=== PATIENT | female | born 1940 | race Caucasian/White ===

== ENCOUNTER 2017-10-02 14:36 | Inpatient (IN) ==
[~2017-10-02 14:36] MED LIST: CYANOCOBALAMIN (B-12) 1,000mcg/ml INJECTION IM SCH
--- NOTE | 2017-10-02 15:05 | Emergency Department Report ---
General Adult HPI - General Chief complaint: Psychiatric Symptoms Stated complaint: withdrawals from medication Time Seen by Provider: 10/02/17 15:05 Source: patient Mode of arrival: ambulatory Limitations: no limitations - History of Present Illness HPI narrative: Patient is a 77-year-old female presents emergency room for evaluation of withdrawal from medication. Patient states she has been taking amitriptyline for 40 years and alprazolam for 25 years, patient was stopped on these medications on May. For the past 3-4 days patient's been having increasing night terrors waking up screaming, feels that she needs a vitamin B-12 shot daily for the next week because, "these the only thing that helps me". Patient did see her primary medical physician on Monday he refused to give her daily vitamin B-12 shot. Patient today decided present to the ER because she has been waking up screaming at night through the entire weekend. Patient did go to urgent care who told her also she zonation's so patient was sent to the ER for evaluation. Discuss case with Dr. Levy primary medical physician, he did see the patient on Monday and at that point felt she was manic and was under diagnosed bipolar. He would feel the [facility] might be appropriate fit for her. She was not evaluated psychiatrically in his office, did have an appointment that she did not make. Onset (ago): unknown - Related Data Home Medications Medication Instructions Recorded Confirmed Carvedilol 12.5 mg PO BID #0 10/31/11 10/02/17 Cyanocobalamin (B-12) [Vit. B-12] 1 unit IM WEEKLY #13 03/11/16 10/02/17 Levothyroxine Sodium 137 mcg PO DAILY #90 03/11/16 10/02/17 Allergies Allergy/AdvReac Type Severity Reaction Status Date / Time Sulfa (Sulfonamide Allergy Unknown Verified 10/02/17 14:57 Antibiotics) codeine AdvReac Mild NAUSEA Verified 10/02/17 14:57 Review of Systems Constitutional: Denies: fever, chills ENT: Denies: ear pain, throat pain, dental pain Cardiovascular: Denies: chest pain, palpitations Respiratory: Denies: cough, dyspnea, wheezes Gastrointestinal: Denies: abdominal pain, nausea, vomiting Genitourinary: Denies: dysuria, frequency Musculoskeletal: Denies: back pain, joint swelling Neurological: Denies: headache, weakness Psychiatric: Denies: anxiety, depression Endocrine: Denies: fatigue, heat or cold intolerance [facility] Patient Stated Medical History Hearing Loss Yes Other HEENT Yes: Wears glasses Hypertension Yes Other GI Yes: Gallstones Depression Yes - Social History Smoking status: Never smoker Substance use type: does not use Alcohol intake frequency: does not drink Physical Exam - General General appearance: alert, in no apparent distress - Eye Eye exam: Present: PERRL, EOMI - ENT ENT exam: Present: normal oropharynx, mucous membranes moist, mucous membranes dry - Neck Neck exam: Present: normal inspection, full ROM, trachea midline. Absent: tenderness - Chest Chest inspection: Present: normal inspection, symmetric chest wall rise. Absent : tenderness - Respiratory Respiratory exam: Present: normal lung sounds bilaterally. Absent: respiratory distress, wheezes, stridor - Cardiovascular Cardiovascular exam: Present: regular rate, normal rhythm, normal heart sounds - Abdominal Exam Abdominal exam: Present: soft, normal bowel sounds. Absent: distention, tenderness - Back Exam Back exam: Present: full ROM. Absent: tenderness - Skin Skin exam: Present: warm, dry - Neurological Exam Neurological exam: Present: alert, oriented X3 - Psychiatric Psychiatric exam: Present: normal affect, normal mood Course Vital Signs Temperature 99.0 F 10/02/17 14:40 Pulse Rate 105 H 10/02/17 14:40 Respiratory Rate 20 10/02/17 14:40 Blood Pressure 140/71 H 10/02/17 14:40 Pulse Oximetry 93 10/02/17 14:40 Temperature 99.0 F 10/02/17 14:40 Pulse Rate 89 10/02/17 16:16 Respiratory Rate 20 10/02/17 16:16 Blood Pressure 137/71 10/02/17 16:16 Pulse Oximetry 98 10/02/17 16:16 Medical Decision Making - Lab Data Lab results reviewed: Yes: I reviewed the patient's lab results. Result diagrams: 10/02/17 15:30 10/02/17 15:30 Lab Results 10/02/17 10/02/17 10/02/17 Range/Units 15:21 15:30 15:30 WBC 4.2 L (4.5-11.0) T/MM3 RBC 4.34 (4.00-5.20) M/MM3 Hgb 12.5 (12-16) GM/DL Hct 39.6 (36-46) % MCV 91.2 (80-100) UM3 MCH 28.8 (26-34) UUG MCHC 31.6 (31-37) GM/DL RDW Std Deviation 46.1 (36.9-50.2) FL Plt Count 156 (130-400) T/MM3 MPV 10.7 (9.4-12.4) UM3 Immature Gran % (Auto) 0.5 (0.0-0.5) % Neut % (Auto) 62.8 (33-66) % Lymph % (Auto) 22.9 L (23-45) % [place] % (Auto) 13.1 H (0-9.0) % Eos % (Auto) 0.5 (0-4) % Baso % (Auto) 0.2 (0-2) % Neut # (Auto) 2.6 (1.8-7.7) T/MM3 Lymph # (Auto) 1.0 (1-4.8) T/MM3 [place] # (Auto) 0.6 (0-0.8) T/MM3 Eos # (Auto) 0.0 (0-0.5) T/MM3 Baso # (Auto) 0.0 (0-0.2) T/MM3 Abs Immat Gran (auto) 0.02 (0.00-0.03) T/MM3 Turbidity < 20 (0-20) Sodium 137 (134-144) MEQ/L Potassium 3.8 (3.6-5) MEQ/L Chloride 101 (98-107) MEQ/L Carbon Dioxide 27 (22-30) MEQ/L Anion Gap 9 (5-15) MEQ/L BUN 13.0 (7-17) MG/DL Creatinine 0.6 L (0.7-1.2) MG/DL GFR Calculation 97 BUN/Creatinine Ratio 22 (6-26) RATIO Glucose 125 H (65-110) MG/DL Calculated Osmolality 265 (261-280) MOSM/KG Calcium 8.5 (8.4-10.2) MG/DL Total Bilirubin 0.40 (0.20-1.30) MG/DL Icterus Index < 2 (0-7) AST 61 H (14-36) U/L ALT 76 H (9-52) U/L Alkaline Phosphatase 84 (38-126) U/L Troponin I < 0.012 (0-0.12) ng/ml Total Protein 6.7 (6.3-8.2) G/DL Albumin 3.7 (3.5-5.0) G/DL Globulin 3.0 (2.4-3.6) G/DL Albumin/Globulin Ratio 1.2 (1.1-2.2) RATIO Specimen Hemolysis < 15 (0-25) Ur Collection Type Urine, clean catch Urine Color Yellow (YELLOW) Urine Clarity Sl cloudy Urine pH 5.5 (5.0-8.0) Ur Specific [place] >=1.030 H (1.015-1.025) Urine Protein 2+ A (NEGATIVE) Urine Glucose (UA) Negative (NEGATIVE) Urine Ketones Trace A (NEGATIVE) Urine Occult Blood 2+ A (NEGATIVE) Urine Nitrate Negative (NEGATIVE) Urine Bilirubin Negative (NEGATIVE) Urine Urobilinogen 0.2 (NORMAL) EU/DL Ur Leukocyte Esterase Negative (NEGATIVE) Urine RBC 0-1 (0-3) /HPF Urine WBC 1-3 (0-5) /HPF Ur Squamous Epith Cells 0-5 Urine Bacteria 3+ H (NEGATIVE) Urine Mucus Present Ur Culture Indicated? Cult not indicated - Radiology Data Radiology results reviewed: Yes: I reviewed the patient's radiology results. No acute cardiopulmonary findings - EKG Data EKG #1 EKG attestation: Yes: I reviewed and interpreted this EKG. EKG shows normal: sinus rhythm, axis, intervals, QRS complexes, ST-T waves Disposition Clinical Impression: Bipolar disorder Qualifiers: Active/Remission status: currently active Current bipolar episode type: manic Current episode severity: moderate Qualified Code(s): F31.12 - Bipolar disorder , current episode manic without psychotic features, moderate [place] 66 [place] [facility] [place] [facility] Condition: Stable Prescriptions: No Action Carvedilol 12.5 mg PO BID #0 Levothyroxine Sodium 137 mcg PO DAILY #90 Cyanocobalamin (B-12) [Vit. B-12] 1 unit IM WEEKLY #13 Referrals: Alvarado Levy MD [Family Provider] - Time of Disposition: 18:11 - Seen By: physician
--- NOTE | 2017-10-02 16:18 | XRay Report ---
EXAM: XR chest 1V HISTORY: weakness, [facility] eval COMPARISON: Prior examination dated 06/19/2015 . FINDINGS: The lung quintanilla are hypoventilated. There are linear densities at the lung bases likely reflecting linear subsegmental atelectasis. No acute focal infiltrates are identified. The cardiomediastinal silhouette is normal. The mediastinum is not widened. The trachea is midline. The pulmonary vascularity is not engorged. The bony thorax shows degenerative/senescent changes. There are again noted postsurgical changes in the right axilla. IMPRESSION: 1. The lung quintanilla are hypoventilated with linear subsegmental atelectasis at the lung bases. 2. No acute focal infiltrates are identified. .
[2017-10-02] MEDS ORDERED: HALOPERIDOL 5 MG/ML INJECTION IM PRN (18:34)
[2017-10-02] MEDS ORDERED: LORazepam 0.5 MG TABLET PO PRN (18:34)
[2017-10-02] MEDS ORDERED: HALOPERIDOL 0.5 MG TABLET PO PRN (18:34)
[2017-10-02] MEDS ORDERED: IBUPROFEN 600 MG TABLET PO PRN (20:37)
[2017-10-02] MEDS ORDERED: CARVEDILOL 12.5 MG TABLET PO SCH (21:00)
[2017-10-02 21:41] VITALS: PULSE 74
[2017-10-03 01:41] VITALS: BMI 29.5
[2017-10-03] MEDS ORDERED: LEVOTHYROXINE 137 MCG TABLET PO SCH ×2 (06:30→09:00)
[2017-10-03 07:59] VITALS: BP 124/68; RESP 16; TEMP 98.5; O2SAT 94
[2017-10-03] MEDS ORDERED: CARVEDILOL 12.5 MG TABLET PO SCH (08:00)
--- NOTE | 2017-10-03 10:12 | History & Physical Report ---
History of Present Illness Date: 10/03/17 Chief complaint: night terrors HPI: Hansa is a 77-year-old patient of Dr. Levy. She presented to the emergency room for 3-4 day history of increasing night terrors. She is convinced that she needs daily vitamin B12 shots for her symptoms and Dr. Levy would not give them to her. She refers back to time in 1986 where she was hospitalized at [place] for similar symptoms and states that B12 shots treated the problem. She had been seen in the office by Dr. Levy last week and at that point, he felt she was manic and was undiagnosed bipolar. She was weaned off of her amitriptyline and alprazolam in May. Since that time, she has had trouble sleeping per her report. Review of Systems All systems PM: 10-point ROS was reviewed, no additional remarkable complaints except - Constitutional Constitutional: Present: fever(s) (ran a fever overnight) - Gastrointestinal Gastrointestinal: Present: diarrhea (states she has diarrhea when she is nervous or stressed) - Psychiatric Psychiatric Comments: Insomnia PFSH Medical History Hypertension Hyperlipidemia Type 2 diabetes Overactive bladder/urinary incontinence TMJ syndrome Anxiety disorder/depression Vitamin B12 deficiency Seasonal allergies Hearing loss History of breast cancer Hypothyroidism Migraines Surgical History: Colonoscopy 04/26/17 negative except for hyperplastic polyps, EGD and dilation of esophageal stricture 03/14/16, lumpectomy left breast 2012, right breast 1991, hysterectomy 1981, appendectomy, cholecystectomy, tonsillectomy, section Family History: Father-hypertension, heart disease, hyperlipidemia, depression, colon cancer, hard of hearing Mother-hypertension, heart disease, hyperlipidemia, breast cancer, heart appearing, allergies Brother-hypertension, allergies - Social History Smoking status: Never smoker Substance use type: does not use Alcohol intake frequency: does not drink Housing: house (lives with her children) Current occupational status: retired Social history: PCP-Dr. Alvarado Levy Medications Home Medications Medication Instructions Recorded Confirmed Type Carvedilol 12.5 mg PO BID #0 10/31/11 10/03/17 History Cyanocobalamin (B-12) [Vit. B-12] 1 unit IM WEEKLY #13 03/11/16 10/03/17 History Levothyroxine Sodium 137 mcg PO DAILY #90 03/11/16 10/03/17 History Ibuprofen [Motrin] 1 tab PO Q6H 10/03/17 10/03/17 History Allergies Allergy/AdvReac Type Severity Reaction Status Date / Time Sulfa (Sulfonamide Allergy Unknown Verified 10/03/17 14:41 Antibiotics) codeine AdvReac Mild NAUSEA Verified 10/03/17 14:41 Exam Vital Signs: Temperature 98.5 F 10/03/17 07:59 Pulse Rate 74 10/03/17 07:59 Respiratory Rate 16 10/03/17 07:59 Blood Pressure 124/68 10/03/17 07:59 Pulse Oximetry 94 10/03/17 07:59 Height/Weight/BMI: Height 1.63 m Weight 78.2 kg Body Mass Index 29.5 - Constitutional Present: no acute distress, well nourished, well developed, cooperative - Routine HEENT Exam Eye: Present: EOMI. Absent: conjunctival icterus - Routine Neck Exam Present: supple. Absent: lymphadenopathy, thyromegaly - Routine Respiratory Exam Present: CTA bilaterally. Absent: wheezes - Routine Cardiovascular Exam Present: RRR. Absent: murmur - Routine Abdominal Exam Present: soft, normoactive bowel sounds, non distended. Absent: tenderness - Routine Extremities Exam Present: no edema, normal capillary refill - Routine Skin Exam Present: dry, warm - Routine Neurological Exam Present: alert, oriented X3, moving all extremities, normal tone, vision grossly intact, hearing grossly intact. Absent: pronator drift, altered mental status, facial asymmetry Cranial nerves III through XII intact - Routine Psychiatric Exam Present: normal affect, cooperative, manic Results - Labs CBC & Chem 7: 10/02/17 15:30 10/02/17 15:30 - Imaging and Cardiology Chest x-ray Additional comments: Date of Exam: 10/02/17 EXAM: XR chest 1V HISTORY: weakness, [facility] eval FINDINGS: The lung quintanilla are hypoventilated. There are linear densities at the lung bases likely reflecting linear subsegmental atelectasis. No acute focal infiltrates are identified. The cardiomediastinal silhouette is normal. The mediastinum is not widened. The trachea is midline. The pulmonary vascularity is not engorged. The bony thorax shows degenerative/senescent changes. There are again noted postsurgical changes in the right axilla. IMPRESSION: 1. The lung quintanilla are hypoventilated with linear subsegmental atelectasis at the lung bases. 2. No acute focal infiltrates are identified. Assessment and Plan (1) Bipolar disorder Status: Acute Assessment and Plan: Impression Manic symptoms- suspect bipolar disorder Night terrors Hypertension Hyperlipidemia Type 2 diabetes Overactive bladder/urinary incontinence TMJ syndrome Anxiety disorder/depression Vitamin B12 deficiency Seasonal allergies Hearing loss History of breast cancer Hypothyroidism Migraines Mnire's per patient report Plan Agree with admission to [facility] for psychiatric evaluation and treatment and to provide a safe environment. Patient is requesting meclizine for dizziness. She reports a history of Mnire' s. Nursing staff had indicated to me earlier that patient was weaned off the meclizine along with her amitriptyline and alprazolam. I have a call into Dr. Levy's office regarding this. Overall patient appears medically stable, however, she did run a fever overnight of up to 101.5, but she is afebrile this morning. Respiratory panel is pending. She has had some diarrhea so stool culture will be ordered. Check TSH as well. B12 level is pending. Dr. Bright currently has B12 ordered IM daily. Currently do not have an A1c results. Will schedule Accu-Cheks. If they are stable and A1c is reasonable, can discontinue order. We will continue to follow the patient medically throughout her stay. Thank you for the consult. Care to return to Dr. Levy upon dismissal. - Physician Narriative Physician: Isabel Gallegos MD Narriative: 10/03/17 20:49 I have independently evaluated and examined this patient. I reviewed the chart, the patient's history, and the [facility]PA's documented findings as above. We discussed and formulated the assessment and plan as above with additions as below: Mrs. Mina continues to describe having been abruptly weaned off of alprazolam and amitriptyline; she did not focus on B 12 at the time of my assessment. She additionally reported needing calcium with vitamin D to avoid leg cramps she is experiencing but denied generalized myalgias or arthralgias. She reports increased cough recently and that she's felt hot and cold for the last couple of weeks which she attributes to going "cold turkey" for medications. She last had a flu shot about 40 years ago. Push of speech is present and she is often tangential but she is pleasant and generally cooperative with examination Cranial nerves III through XII intact, motor tone normal, no tremors. Breakaway weakness on testing of motor groups, no drift of the upper extremities. Sensation intact to light touch 4 extremities Respirations nonlabored with good airflow, breath sounds clear, no wheezing Regular cardiac exam Chest x-ray reviewed by myself and is unremarkable. Influenza A positive Mildly neutropenic; transaminases slightly elevated, urine concentrated Respiratory isolation needed-anticipate transfer to medicine. Transfer plan subsequently discussed/confirmed with Dr. Bright. Hospital Course Summary Disclaimer: The visit summary below is not to be considered part of the above Progress Note. Hospital Course: Impression Manic symptoms- suspect bipolar disorder Night terrors Hypertension Hyperlipidemia Type 2 diabetes Overactive bladder/urinary incontinence TMJ syndrome Anxiety disorder/depression Vitamin B12 deficiency Seasonal allergies Hearing loss History of breast cancer Hypothyroidism Migraines Mnire's per patient report 10/03/17 Agree with admission to [facility] for psychiatric evaluation and treatment and to provide a safe environment. Patient is requesting meclizine for dizziness. She reports a history of Mnire' s. Nursing staff had indicated to me earlier that patient was weaned off the meclizine along with her amitriptyline and alprazolam. I have a call into Dr. Levy's office regarding this. Overall patient appears medically stable, however, she did run a fever overnight of up to 101.5, but she is afebrile this morning. Respiratory panel is pending. She has had some diarrhea so stool culture will be ordered. Check TSH as well. B12 level is pending. Dr. Bright currently has B12 ordered IM daily. Currently do not have an A1c results. Will schedule Accu-Cheks. If they are stable and A1c is reasonable, can discontinue order. We will continue to follow the patient medically throughout her stay. Thank you for the consult. Care to return to Dr. Levy upon dismissal. Addendum entered and electronically signed by CHARLY Ruvalcaba 10/03/17 12:03 : Spoke with Dr. Levy regarding patient. He states she weaned herself off of the amitriptyline and alprazolam. Meclizine may be used, however do not recommend long-term use. Addendum entered and electronically signed by CHARLY Ruvalcaba 10/03/17 12:25 : Patient tested positive for influenza A. GI panel canceled as etiology for fever was found. Addendum entered and electronically signed by CHARLY Ruvalcaba 10/03/17 15:54 : Correction to above note: Patient does not have B12 IM ordered daily, it is ordered weekly as she has been receiving. Dr. Levy was unable to find previous vitamin B12 results. Vitamin B12 drawn at this visit is pending.
[2017-10-03] MEDS ORDERED: MECLIZINE 25 MG TABLET PO PRN (11:12)
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
== END 2017-10-03 14:50 | disposition short-term general hospital (02) | DRG 153 ==
LOC: ED 14:36 → GEN 18:34
PROVIDERS: ADMIT Psychiatry & Neurology Psychiatry; ATTEND Psychiatry & Neurology Psychiatry

== ENCOUNTER 2017-10-03 13:55 | Observation (INO) ==
--- NOTE | 2017-10-03 14:57 | Progress Note ---
Progress Note: Patient was seen for consultation on the [facility] today. She had a fever overnight and tested positive for influenza A. She cannot stay in the [facility] given that she will need droplet precautions. She was transferred to the medical floor for observation and treatment and droplet precautions. See [facility] consult note for further information. Formal H&P to be performed tomorrow for her medical admission. Addendum entered and electronically signed by CHARLY Ruvalcaba 10/03/17 15:54 : Patient started on Tamiflu
[2017-10-03] MEDS ORDERED: HALOPERIDOL 5 MG/ML INJECTION IVP PRN (15:48)
[2017-10-03] MEDS ORDERED: LORazepam 0.5 MG TABLET PO PRN (15:49)
[2017-10-03] MEDS ORDERED: HALOPERIDOL 0.5 MG TABLET PO PRN (15:49)
[2017-10-03 15:51] VITALS: BMI 30.7
[2017-10-03] MEDS ORDERED: ONDANSETRON 4 MG/2 ML INJECTION IVP PRN (15:53)
[2017-10-03] MEDS ORDERED: ALBUTEROL/IPRATROPIUM 2.5mg-0.5mg/3ml NEB AEROSOL PRN (16:12)
[2017-10-03] MEDS: CARVEDILOL 12.5 MG TABLET PO SCH (17:46)
[2017-10-03] MEDS: ALBUTEROL/IPRATROPIUM 2.5mg-0.5mg/3ml NEB AEROSOL SCH (19:24)
[2017-10-03] MEDS ORDERED: CALCIUM 500 + VIT D 200 TABLET PO PRN (20:55)
[2017-10-04] MEDS: LEVOTHYROXINE 137 MCG TABLET PO SCH (06:22)
[2017-10-04] MEDS: MECLIZINE 25 MG TABLET PO PRN (06:22)
[2017-10-04] MEDS: BENZONATATE 200 MG CAPSULE PO PRN ×2 (09:00→17:54)
[2017-10-04] MEDS: CARVEDILOL 12.5 MG TABLET PO SCH ×2 (09:00→17:49)
[2017-10-04] MEDS: MENTHOL COUGH DROPS (RICOLA) MM PRN ×2 (09:01→17:54)
[2017-10-04] MEDS: ALBUTEROL/IPRATROPIUM 2.5mg-0.5mg/3ml NEB AEROSOL SCH ×3 (09:16→19:33)
--- NOTE | 2017-10-04 12:28 | History & Physical Report ---
History of Present Illness Date: 10/04/17 Chief complaint: influenza A HPI: Hansa is a 77-year-old female who was [facility] unit yesterday due to positive influenza. She had run a fever overnight the night before last, thus respiratory panel was ordered and was positive. As the [facility] cannot keep patients with droplet precautions in the unit, she was transferred. Overall, her main complaint is cough and some pain in the chest related to the cough. She's not had a fever since the first night. She has been started on Tamiflu and breathing treatments and believes the breathing treatments are very helpful. She was originally admitted to the [facility] because she was having increasing night terrors. She was convinced she needed daily vitamin B12 shots for her symptoms. She weaned off of amitriptyline and alprazolam reportedly in May. Has had trouble sleeping since that time per her report. Review of Systems All systems PM: 10-point ROS was reviewed, no additional remarkable complaints except Review of systems: Cough, feeling like her "head is in a well," poor sleep last night, mild diarrhea (states she gets this if she is stressed/nervous), mild chest discomfort related to cough PFSH Medical History Hypertension Hyperlipidemia Type 2 diabetes Overactive bladder/urinary incontinence TMJ syndrome Anxiety disorder/depression Vitamin B12 deficiency Seasonal allergies Hearing loss History of breast cancer Hypothyroidism Migraines Surgical History: Colonoscopy 04/26/17 negative except for hyperplastic polyps, EGD and dilation of esophageal stricture 03/14/16, lumpectomy left breast 2012, right breast 1991, hysterectomy 1981, appendectomy, cholecystectomy, tonsillectomy, section Family History: Father-hypertension, heart disease, hyperlipidemia, depression, colon cancer, hard of hearing Mother-hypertension, heart disease, hyperlipidemia, breast cancer, heart appearing, allergies Brother-hypertension, allergies - Social History Smoking status: Never smoker Substance use type: does not use Alcohol intake frequency: does not drink Housing: house (her son lives in the basement) Current occupational status: retired Current residence: Apartment/Private Home Social history: PCP-Dr. Alvarado Levy Medications Home Medications Medication Instructions Recorded Confirmed Type Carvedilol 12.5 mg PO BID #0 10/31/11 10/03/17 History Cyanocobalamin (B-12) [Vit. B-12] 1 unit IM WEEKLY #13 03/11/16 10/03/17 History Levothyroxine Sodium 137 mcg PO DAILY #90 03/11/16 10/03/17 History Ibuprofen [Motrin] 1 tab PO Q6H 10/03/17 10/03/17 History Allergies Allergy/AdvReac Type Severity Reaction Status Date / Time Sulfa (Sulfonamide Allergy Unknown Verified 10/03/17 14:41 Antibiotics) codeine AdvReac Mild NAUSEA Verified 10/03/17 14:41 Exam Vital Signs: Temperature 97.7 F 10/04/17 08:49 Pulse Rate 90 10/04/17 08:49 Respiratory Rate 24 10/04/17 09:16 Blood Pressure 145/71 H 10/04/17 08:49 Pulse Oximetry 99 10/04/17 09:16 Height/Weight/BMI: Height 1.6 m Weight 79.2 kg Body Mass Index 30.7 - Constitutional Present: no acute distress, well nourished, well developed - Routine HEENT Exam Eye: Present: EOMI. Absent: conjunctival icterus - Routine Neck Exam Present: supple. Absent: lymphadenopathy, thyromegaly - Routine Respiratory Exam Present: CTA bilaterally. Absent: wheezes - Routine Cardiovascular Exam Present: RRR. Absent: murmur - Routine Abdominal Exam Present: soft, normoactive bowel sounds, non distended. Absent: tenderness - Routine Extremities Exam Present: no edema, normal capillary refill - Routine Skin Exam Present: dry, warm - Routine Neurological Exam Present: alert, oriented X3, moving all extremities, normal tone, normal speech. Absent: pronator drift Cranial 3 through 12 intact - Routine Psychiatric Exam Present: normal affect, cooperative Results - Labs CBC & Chem 7: 10/04/17 04:25 10/04/17 04:25 Labs: Positive influenza A Laboratory Tests 10/02/17 15:23 Hemoglobin A1c 8.0 H Laboratory Tests 10/02/17 10/03/17 15:20 13:41 Vitamin B12 > 1000 H Folate > 20.0 H TSH 4.09 Assessment and Plan (1) Influenza A Current visit: No Status: Acute Assessment and Plan: Impression Influenza A Manic symptoms- suspect bipolar disorder Night terrors Hypertension Hyperlipidemia Type 2 diabetes (A1C 8.0 this admission) Overactive bladder/urinary incontinence TMJ syndrome Anxiety disorder/depression Vitamin B12 deficiency Seasonal allergies Hearing loss History of breast cancer Hypothyroidism Migraines Mnire's per patient report Plan Admit to hospitalist service (Dr. Gallegos attending) observation status for treatment of her influenza A and droplet precautions. Patient started on Tamiflu and Duoneb txs. B12 level is >1000. Despite her requests, she will not need daily B12 injections. SCD's for VTE prophylaxis. This should likely suffice as she should be up and walking periodically. Consult PT/OT to assess functional status. Accu-Cheks and sliding scale insulin. She is not currently on any diabetic medications. Will follow her sugars while here. She may benefit from metformin , but will not start presently since she is having diarrhea. Dr Bright plans to start depakote for her kaylen. She requests to be a full code. Care to return to Dr. Levy upon dismissal. DVT Prophylaxis: SCD's Resuscitation Status: Full Code - Physician Narriative Physician: Isabel Gallegos MD Narriative: 10/04/17 15:36 I have independently evaluated and examined this patient. I reviewed the chart, the patient's history, and the [employer]/PA's documented findings as above. We discussed and formulated the assessment and plan as above with additions as below: Mrs. Mina is known from her brief stay in [facility]. She recently tapered off of alprazolam and amitriptyline and in doing so developed increasing nightmares--> night terrors. On follow-up in the office manic behavior was described prompting hospitalization in geriatric psychiatry. The patient has had a cough and fever was identified the initial night of hospitalization at which time respiratory viral swab was positive for influenza A. The patient is difficult to obtain concrete historical information from as she initially perseverated on need for B-12 shots daily. Today she reports that her cough is better this morning but that she didn't sleep well due to coughing spells. She has increased rhinorrhea today on exam although she doesn't comment on it. Primary complaint today is of generalized weakness and fatigue. NAD, hard of hearing-hearing aid batteries . Respirations nonlabored with diminished air flow but breath sounds are clear Regular rhythm, S1-S2 No tremors, MAEW Chest x-ray of 10/02/17 reviewed by myself-NAD. Liver enzymes on admission 1211 with mild elevation transaminases, TSH 4.09 yesterday. Case discussed with Dr. Bright twice today. Patient is now declining any treatment for bipolar affective disorder. Dr. Bright as recommended Depakote ER at a dose of [id number] mg at bedtime if liver enzymes are improved. LFTs being repeated on blood and lab. LFTs normal in April per outpatient records. Continue Tamiflu. Patient gave me permission to discuss lab results with her brother and he was updated on influenza and B-12 level. Hospital Course Summary Disclaimer: The visit summary below is not to be considered part of the above Progress Note. Hospital Course: Impression Influenza A Manic symptoms- suspect bipolar disorder Night terrors Hypertension Hyperlipidemia Type 2 diabetes (A1C 8.0 this admission) Overactive bladder/urinary incontinence TMJ syndrome Anxiety disorder/depression Vitamin B12 deficiency Seasonal allergies Hearing loss History of breast cancer Hypothyroidism Migraines Mnire's per patient report 10/04/17 - hospital admission for observation Admit to hospitalist service (Dr. Gallegos attending) observation status for treatment of her influenza A and droplet precautions. Patient started on Tamiflu and Duoneb txs. B12 level is >1000. Despite her requests, she will not need daily B12 injections. SCD's for VTE prophylaxis. This should likely suffice as she should be up and walking periodically. Consult PT/OT to assess functional status. Accu-Cheks and sliding scale insulin. She is not currently on any diabetic medications. Will follow her sugars while here. She may benefit from metformin , but will not start presently since she is having diarrhea. Dr Bright plans to start depakote for her kaylen. She requests to be a full code. Care to return to Dr. Levy upon dismissal.
--- NOTE | 2017-10-04 16:12 | Neuropsychiatric Consult ---
[facility] HPI Date: 10/04/17 Requesting Physician: Isabel Gallegos Reason for Consultation: Evaluation Start Time: 09:20 Stop Time: 10:00 Care: >50% of this visit spent in counseling/coordination care. History of Present Illness: Patient is a 77-year-old , retired female initially admitted to [facility], [place], operated by [facility] and then transferred shortly after admission to medical floor (on 10/03) as she tested positive for Influenza A. During my interview with patient at [facility], I suspected bipolar disorder which has not yet been treated. I discussed medications for bipolar disorder with patient today and she refused , preferring instead to focus on Vitamin B12. B12 level was >1000 during this hospitalization. Patient denied SI, HI, AVH and gives no evidence of imminent danger to self or others. I discussed diagnosis, symptoms, treatment options with patient's son/LEA Jackson , who prefers that she have medication but understands that we cannot treat her against her will at this point. He is in agreement that she is not a danger to herself or others. [place]: Decreased judgment, Irritability, Need less sleep, Speedy talking, Speedy thoughts PFSH Patient Stated Medical History Hearing Loss Yes Other HEENT Yes: Wears glasses Hypertension Yes Other GI Yes: Gallstones Depression Yes Other Behavioral Health Yes: Stopped pysch meds in Surgical History: Colonoscopy 04/26/17 negative except for hyperplastic polyps, EGD and dilation of esophageal stricture 03/14/16, lumpectomy left breast 2012, right breast 1991, hysterectomy 1981, appendectomy, cholecystectomy, tonsillectomy, section Family History: Father, brother - depression - Social History Smoking status: Never smoker Current residence: Apartment/Private Home Review of Systems All systems: reviewed and no additional remarkable complaints except as stated - Constitutional Constitutional: Present: fever(s), malaise, weakness - Psychiatric Psychiatric: Present: as per HPI, abnormal sleep pattern, behavioral changes, mood swings Mental Status Exam Vitals: Last Vital Signs Temp 98.5 F 10/04/17 15:29 Pulse 83 10/04/17 15:29 Resp 18 10/04/17 15:29 BP 138/72 10/04/17 15:29 Pulse Ox 96 10/04/17 15:29 Height: 1.6 m Weight: 79.2 kg - Mental Status Exam Muscle Strength/Tone: Normal Dressing: Casual Grooming: Fair Attitude: Cooperative Motor Activity: Normal Eye Contact: Fair Speech: Rapid Volume: Loud Rhythm: Appropriate Rhythm Orientation: Oriented X4 Mood: Anxious Affect: Anxious (mildly labile) Rate of Thoughts: Pressured Thought Organization: Circumstantial Associations: Illogical (at times) Abstract Reasoning: Poor abstract reasoning Thought Content: Delusions (somatic - that she has low Vitamin B12) Perception/Psychotic: Perception Normal (other than delusion) Language: Naming Intact Fund of Knowledge: Marshall aware current events Memory: Grossly Intact Suicidal Ideation: Denies Homicidal Ideation: Denies Insight: Limited Judgement: Limited Impulse Control: Fair - Laboratory Result Diagrams: 10/04/17 04:25 10/04/17 04:25 Laboratory Results - last 24 hr 10/02/17 10/03/17 10/04/17 15:23 17:49 04:25 WBC 5.8 RBC 4.48 Hgb 12.9 Hct 40.1 MCV 89.5 MCH 28.8 MCHC 32.2 RDW Std Deviation 43.9 Plt Count 165 MPV 11.0 Immature Gran % (Auto) 0.2 Neut % (Auto) 64.7 Lymph % (Auto) 24.5 [place] % (Auto) 9.3 H Eos % (Auto) 1.0 Baso % (Auto) 0.3 Neut # (Auto) 3.7 Lymph # (Auto) 1.4 [place] # (Auto) 0.5 Eos # (Auto) 0.1 Baso # (Auto) 0.0 Abs Immat Gran (auto) 0.01 Turbidity Sodium Potassium Chloride Carbon Dioxide Anion Gap BUN Creatinine GFR Calculation BUN/Creatinine Ratio Glucose Glucometer 139 Hemoglobin A1c 8.0 H Calculated Osmolality Calcium Icterus Index Specimen Hemolysis 10/04/17 04:25 WBC RBC Hgb Hct MCV MCH MCHC RDW Std Deviation Plt Count MPV Immature Gran % (Auto) Neut % (Auto) Lymph % (Auto) [place] % (Auto) Eos % (Auto) Baso % (Auto) Neut # (Auto) Lymph # (Auto) [place] # (Auto) Eos # (Auto) Baso # (Auto) Abs Immat Gran (auto) Turbidity < 20 Sodium 134 Potassium 4.0 Chloride 98 Carbon Dioxide 27 Anion Gap 9 BUN 15.0 Creatinine 0.6 L GFR Calculation 97 BUN/Creatinine Ratio 25 Glucose 151 H Glucometer Hemoglobin A1c Calculated Osmolality 262 Calcium 8.5 Icterus Index < 2 Specimen Hemolysis < 15 Assessment and Plan (1) Bipolar disorder Qualifiers: Active/Remission status: currently active Current bipolar episode type: manic Current episode severity: moderate Qualified Code(s): F31.12 - Bipolar disorder, current episode manic without psychotic features, moderate Current visit: No Status: Acute (2) Influenza A Current visit: No Status: Acute (3) Hypertension Current visit: No Status: Acute (4) Hyperlipidemia Current visit: No Status: Acute (5) Type 2 diabetes mellitus Current visit: No Status: Acute (6) History of breast cancer Current visit: No Status: Acute (7) Hypothyroidism Current visit: No Status: Acute Discussed diagnosis, symptoms, treatment with patient and son/DPOA. She is refusing treatment for bipolar at this point and I do not feel she is an imminent danger to self or others, so I cannot medicate or hospitalize her against her will - though I do think she would benefit from medication management. Son also feels that she is ultimately safe to discharge back to home. Recommend no further antidepressants (TCAs or SSRIs/SNRIs, etc.) or benzodiazepines. A mood stabilizer would be most beneficial if patient would ever agree to this. Please contact me if further assistance with med management is needed.
[2017-10-04] MEDS: INSULIN ASPART 100unit/ml INJECTION SQ PRN (22:31)
[2017-10-04 23:52] VITALS: BP 130/65; O2SAT 94
[2017-10-05] MEDS: BENZONATATE 200 MG CAPSULE PO PRN (04:34)
[2017-10-05] MEDS: MENTHOL COUGH DROPS (RICOLA) MM PRN (04:35)
[2017-10-05] MEDS: LEVOTHYROXINE 137 MCG TABLET PO SCH (05:41)
[2017-10-05] MEDS: MECLIZINE 25 MG TABLET PO PRN (05:51)
[2017-10-05] MEDS: INSULIN ASPART 100unit/ml INJECTION SQ PRN (05:56)
[2017-10-05] MEDS: CARVEDILOL 12.5 MG TABLET PO SCH (08:14)
[2017-10-05 09:39] VITALS: PULSE 89; RESP 16; TEMP 98.5
--- NOTE | 2017-10-05 15:52 | Discharge Summary ---
Discharge Information Date of admission: 10/03/17 14:56 Anticipated date of discharge: 10/05/17 Attending Physician: Isabel Gallegos MD Primary care physician: Alvarado Levy MD Consults: Consulting Provider: Maritza Bright Reason For Exam: bipolar affective disorder - Discharge Diagnosis (1) Influenza A Status: Acute Influenza A Manic symptoms- suspect bipolar disorder Night terrors Hypertension Hyperlipidemia Type 2 diabetes (A1C 8.0 this admission) h/o B12 deficieny, adequately replaced - Laboratory Labs: 10/04/17 04:25 10/04/17 04:25 A1C 8.0 on 10/02/17 AST 46, ALT 60 with normal bilirubin and alkaline phosphatase on 10/04/17 History of Present Illness HPI: Hansa is a 77-year-old female who was transferred from the [facility] unit to the medical unit yesterday due to positive influenza. She had run a fever overnight the night before last, thus respiratory panel was ordered and was positive. As the [facility] unit cannot keep patients with droplet precautions in the unit, she was transferred. Overall, her main complaint is cough and some pain in the chest related to the cough. She's not had a fever since the first night. She has been started on Tamiflu and breathing treatments and believes the breathing treatments are very helpful. She was originally admitted to the [facility] unit because she was having increasing night terrors. She was convinced she needed daily vitamin B12 shots for her symptoms. She weaned off of amitriptyline and alprazolam reportedly in May. Has had trouble sleeping since that time per her report. Hospital Course This is a general summary of the patient's hospital course. For more details refer to the complete medical record. Hospital course: Impression Influenza A Manic symptoms- suspect bipolar disorder Night terrors Hypertension Hyperlipidemia Type 2 diabetes (A1C 8.0 this admission) Overactive bladder/urinary incontinence TMJ syndrome Anxiety disorder/depression Vitamin B12 deficiency Seasonal allergies Hearing loss History of breast cancer Hypothyroidism Migraines Mnire's per patient report Hospital coarse Mrs. Mina was transferred from [facility] to the acute medical service for respiratory isolation and treatment of her influenza A. Tamiflu and Duoneb treatments were initiated when she transferred on 10/03. The patient initially requested daily B-12 injections however B12 level is > 1000 and after resting for 24 hours the patient described feeling significantly improved and indicated she no longer felt the need for additional B-12 supplementation. She received one B-12 shot while she was on [employer] before she transferred. Dr. Bright continue to follow the patient after transfer and recommended trial of Depakote ER starting at [id number] mg daily at bedtime if the patient was willing to consider treatment for bipolar affective disorder/"anxiety". Liver enzymes remain slightly elevated on 10/04 although improved from 10/02) so trial of Depakote is on hold. It's unclear that patient would be receptive to initiation of medication. On 10/05 the patient reported that she felt much more rested, weakness was improved and dyspnea/cough had improved significantly. She's had no fever since transfer. The patient continues to have mild push of speech although I believe it is improved from admission to psychiatry several days ago. She was anxious when I saw her due to concerns about her son having abnormal symptoms at home and she expressed need to discharge immediately so she can provide assistance to him. Respirations were nonlabored with good air flow, there were faint inspiratory crackles posteriorly but no wheezing. Cardiac rhythm was regular. Given that the patient does not pose a risk to herself or others and is not requiring oxygen or other ventilatory assistance she was felt stable for discharge at this time. Dr. Levy was notified of events of the hospitalization. Patient can be readmitted to [facility] in the near future if indicated after the period of isolation (after completing Tamiflu) is complete. Mrs. Mina was advised that if she needs to bring her son to the emergency room later this morning she needs to wear a mask to avoid exposing other patients/visitors to influenza. Time spent with patient: discharge greater than 30 minutes Discharge Plan - Med Rec/Dispo Referrals/Follow Up: Alvarado Levy MD [Family Provider] - 1 Week (APPOITMENT N 10/12 AT 1PM. ) Geovanna Instructions: Influenza (GEN) Prescriptions: New Oseltamivir Cap [Tamiflu] 75 mg PO BID #6 cap Continue Carvedilol 12.5 mg PO BID #0 Levothyroxine Sodium 137 mcg PO DAILY #90 Cyanocobalamin (B-12) [Vit. B-12] 1 unit IM WEEKLY #13 Meclizine [Antivert] 25 mg PO TID PRN 30 Days #90 tab PRN Reason: Dizziness Ibuprofen [Motrin] 1 tab PO Q6H - Disposition 01 Discharged Home, Self-Care
[2017-10-10] MEDS ORDERED: CYANOCOBALAMIN (B-12) 1,000mcg/ml INJECTION IM SCH (09:00)
== END 2017-10-05 10:05 | disposition home or self-care (01) ==
LOC: MED
PROVIDERS: ADMIT Internal Medicine; ATTEND Internal Medicine